=== PATIENT | male | born 1930 | race Hispanic/Latino ===

== ENCOUNTER 2017-03-16 11:58 | Inpatient (IN) | payer MEDICARE ==
[2017-03-16 12:10] VITALS: BMI 27.6
--- NOTE | 2017-03-16 12:13 | ED PDOC ---
Arrival/HPI - General Time Seen by Provider: 03/16/17 12:03 Historian: Patient - History of Present Illness Narrative History of Present Illness (Text): 03/16/17 12:10 A 86 year old male, whose past medical history includes pacemaker, stents, hypertension, and hypercholesterolemia, was sent into the emergency department by PMD complaining of shortness of breath for the past 3 days. Patient reports worsening dyspnea on exertion. He states his symptoms are relieved at rest. Patient denies any fever, nausea, vomiting, diarrhea, abdominal pain, chest pain , cough, dizziness or any other complaints. PMD: Dr. Acevedo Finish Sander: Dr. Goss Time/Duration: Other (few days) Symptom Course: Unchanged Quality: Other Context: Home Associated Symptoms (Text): 03/16/17 13:32 patient has dyspnea on exertion. No dyspnea at rest. no chest pain. Past Medical History - Provider Review Nursing Documentation Reviewed: Yes - Cardiac Hx Cardiac Disorders: Yes Hx Hypertension: Yes Hx Pacemaker: Yes - Pulmonary Hx Respiratory Disorders: No Other/Comment: SMOKES CIGARETTES PPD /QUIT - Neurological Hx Neurological Disorder: No Hx Dizziness: Yes (SYNCOPE) - HEENT Hx HEENT Disorder: No - Renal Hx Renal Disorder: No - Endocrine/Metabolic Hx Endocrine Disorders: No - Hematological/Oncological Hx Blood Disorders: No - Integumentary Hx Dermatological Disorder: No - Musculoskeletal/Rheumatological Hx Musculoskeletal Disorders: No Hx Falls: Yes - Gastrointestinal Hx Gastrointestinal Disorders: No - Genitourinary/Gynecological Hx Genitourinary Disorders: No - Psychiatric Hx Psychophysiologic Disorder: No Hx Substance Use: No - Surgical History Hx Cardiac Catheterization: Yes Hx Coronary Stent: Yes Hx Eye Surgery: Yes Other/Comment: EYE SX Family/Social History - Physician Review Nursing Documentation Reviewed: Yes Family/Social History: No Known Family HX Smoking Status: Former Smoker Hx Alcohol Use: No Hx Substance Use: No Allergies/Home Meds Allergies/Adverse Reactions: Allergies No Known Allergies Allergy (Verified 03/16/17 12:13) Home Medications: Home Meds Medication Instructions Recorded Confirmed Aspirin 81 mg PO DAILY 04/21/16 03/16/17 Atorvastatin [Lipitor] 40 mg PO DIN 04/23/16 03/16/17 Metoprolol Tartrate [Lopressor] 1.5 tab PO BID 03/16/17 03/16/17 Tamsulosin [Flomax] 0.4 mg PO DAILY 03/16/17 03/16/17 Review of Systems - Physician Review All systems were reviewed & negative as marked: Yes - Review of Systems Constitutional: absent: Fevers Respiratory: SOB. absent: Cough Cardiovascular: absent: Chest Pain Gastrointestinal: absent: Abdominal Pain, Nausea, Vomiting Neurological: absent: Dizziness Physical Exam Vital Signs Temp Pulse Resp BP Pulse Ox 03/16/17 14:22 66 18 127/73 97 03/16/17 13:48 65 18 120/88 98 03/16/17 12:15 16 98 03/16/17 12:14 98.0 F 67 18 149/71 98 Temperature: Afebrile Blood Pressure: Normal Pulse: Regular Respiratory Rate: Normal Appearance: Positive for: Well-Appearing, Non-Toxic, Comfortable Pain Distress: None Mental Status: Positive for: Alert and Oriented X 3 - Systems Exam Head: Present: Atraumatic, Normocephalic Pupils: Present: PERRL Extroacular Muscles: Present: EOMI Conjunctiva: Present: Normal Mouth: Present: Moist Mucous Membranes Pharnyx: No: ERYTHEMA, EXUDATE, TONSILS ENLARGED Neck: Present: Normal Range of Motion. No: MIDLINE TENDERNESS, Paraspinal Tenderness, JVD Respiratory/Chest: Present: Clear to Auscultation, Good Air Exchange, Decreased Breath Sounds. No: Respiratory Distress, Accessory Muscle Use, Wheezes, Rales, Retracting, Rhonchi, Tachypneic Cardiovascular: Present: Normal S1, S2, Irregular Rhythm, Other (Regular Rate). No: Murmurs Abdomen: Present: Normal Bowel Sounds. No: Tenderness, Distention, Peritoneal Signs Upper Extremity: Present: Normal Inspection. No: Cyanosis, Edema Lower Extremity: Present: Normal Inspection. No: Edema Neurological: Present: GCS=15, CN II-XII Intact, Speech Normal, Motor Func Grossly Intact Skin: Present: Warm, Dry, Normal Color. No: Rashes Psychiatric: Present: Alert, Oriented x 3, Normal Insight, Normal Concentration Medical Decision Making ED Course and Treatment: 03/16/17 12:10 Impression: A 86 year old male with shortness of breath and dyspnea on exertion. Patient denies any chest pain. Plan: -- Chest xray -- EKG -- Labs -- Reassess and disposition Prior Visits: Notes and results from previous visits were reviewed. Patient last seen in ED on 04/21/16 and hospitalized for syncope. Progress Notes: Report Date : 03/16/2017 12:30:58 Procedure: Chest xray Dictator : Víctor Valdes MD IMPRESSION: No active disease. 03/16/17 13:30 seen and examined by ' resident Ed, who will follow up on the VQ scan. 03/16/17 13:33 EKG is pacing rate approximately 70 03/16/17 16:17 VQ scan as read by the radiologist shows low probability for pulmonary embolus - Lab Interpretations Lab Results: 03/16/17 12:30 03/16/17 12:30 Lab Results 03/16/17 12:30: WBC 7.4, RBC 4.59, Hgb 13.2 L, Hct 40.1 L, MCV 87.4, MCH 28.8, MCHC 32.9, RDW 13.7, Plt Count 198, MPV 10.1, Gran % 72.2 H, Lymph % (Auto) 14.1 L, [place] % (Auto) 10.5 H, Eos % (Auto) 2.7, Baso % (Auto) 0.5, Gran # 5.31, Lymph # 1.0 L, [place] # 0.8 H, Eos # 0.2, Baso # 0.04, PT 10.8, INR 1.00, APTT 24.9, D-Dimer, Quantitative 1.14 H, Sodium 143, Potassium 4.4, Chloride 105, Carbon Dioxide 26, Anion Gap 16, BUN 26 H, Creatinine 1.9 H, Est GFR ( Amer) 41, Est GFR (Non-Af Amer) 34, Random Glucose 109, Calcium 9.3, Total Bilirubin 0.8, AST 24, ALT 35, Alkaline Phosphatase 129, Lactate Dehydrogenase 305 L, Total Creatine Kinase 94, Troponin I 0.03 D, NT-Pro-B Natriuret Pep 8210 H, Total Protein 6.9, Albumin 4.0, Globulin 2.9, Albumin/Globulin Ratio 1.4 I have reviewed the lab results: Yes - RAD Interpretation Radiology Orders: 03/16/17 12:10 CHEST PORTABLE [RAD] Stat 03/16/17 13:15 LUNG PERF & VENT SCAN [NM] Stat - Medication Orders Current Medication Orders: Amlodipine Besylate (Norvasc) 5 mg PO DAILY [facility] Aspirin (Ecotrin) 81 mg PO DAILY [facility] Atorvastatin Calcium (Lipitor) 40 mg PO DIN [facility] Famotidine (Pepcid) 40 mg PO HS [facility] Heparin Sodium (Porcine) (Heparin) 5,000 units SC Q12 [facility] PRN Reason: Protocol Metoprolol Tartrate (Lopressor) 75 mg PO BID [facility] Tamsulosin HCl (Flomax) 0.4 mg PO DAILY [facility] - Scribe Statement The provider has reviewed the documentation as recorded by the Rajni Rangel Provider Scribe Attestation: All medical record entries made by the Scribe were at my direction and personally dictated by me. I have reviewed the chart and agree that the record accurately reflects my personal performance of the history, physical exam, medical decision making, and the department course for this patient. I have also personally directed, reviewed, and agree with the discharge instructions and disposition. Disposition/Present on Arrival - Present on Arrival Any Indicators Present on Arrival: No History of DVT/PE: No History of Uncontrolled Diabetes: No Urinary Catheter: No History of Decub. Ulcer: No History Surgical Site Infection Following: None - Disposition Have Diagnosis and Disposition been Completed?: Yes Diagnosis: Congestive heart failure Disposition: HOSPITALIZED Disposition Time: 13:31 Patient Plan: Admission, Telemetry Condition: FAIR
--- NOTE | 2017-03-16 12:32 | RAD ---
HISTORY: sob COMPARISON: 04/21/2016 FINDINGS: LUNGS: No active pulmonary disease. PLEURA: No significant pleural effusion identified, no pneumothorax apparent. CARDIOVASCULAR: Normal. OSSEOUS STRUCTURES: No significant abnormalities. VISUALIZED UPPER ABDOMEN: Normal. OTHER FINDINGS: Dual lead pacemaker IMPRESSION: No active disease.
[2017-03-16 12:40] LABS: ADD MANUAL DIFF? NO
[2017-03-16 12:49] LABS: BASO # 0.04 K/mm3 (0.0-2.0); BASO % 0.5 % (0.0-3.0); EOS # 0.2 (0.0-0.7); EOS % 2.7 % (1.5-5.0); GRAN # 5.31 (1.4-6.5); GRAN % 72.2 % (50.0-68.0); HEMATOCRIT 40.1 % (42.0-52.0); LYMPH % 14.1 % (22.0-35.0); MEAN CELL VOLUME 87.4 fL (80.0-105.0); MEAN CORPUSCULAR HEMOGLOBIN 28.8 pg (25.0-35.0); MEAN CORPUSCULAR HGB CONC 32.9 g/dl (31.0-37.0); MEAN PLATELET VOLUME 10.1 fl (7.0-11.0); MONO # 0.8 (0.1-0.6); MONO % 10.5 % (1.0-6.0); PLATELET COUNT 198 10^3/uL (120.0-450.0); RED CELL DISTRIBUTION WIDTH 13.7 % (11.5-14.5); WHITE BLOOD COUNT 7.4 10^3/ul (4.5-11.0)
[2017-03-16 13:01] LABS: ALB/GLOB RATIO 1.4 (1.1-1.8); BILIRUBIN,TOTAL 0.8 mg/dL (0.2-1.3); CALCIUM 9.3 mg/dL (8.4-10.5); POTASSIUM 4.4 mmol/L (3.6-5.0); TOTAL PROTEIN 6.9 g/dL (5.8-8.3)
[2017-03-16 13:08] LABS: PARTIAL THROMBOPLASTIN TIME 24.9 Seconds (23.7-30.8)
[2017-03-16 13:09] LABS: D DIMER 1.14 mg/L FEU (0-0.50)
[2017-03-16 13:19] LABS: TROPONIN I 0.03 ng/mL
--- NOTE | 2017-03-16 13:26 | CP.PCM.HP ---
<NoamJaspal - Last Filed: 03/16/17 21:18> History of Present Illness - History of Present Illness History of Present Illness: cc: Shortness of breath HPI: Patient is an 86yo male with past medical history of CAD s/p stent placement, pacemaker placement, hypertension, hyperlipidemia, macular degeneration and basal cell skin cancer that presents c/o shortness of breath. Patient states that he is normally able to walk without issue however recently he has been having to stop every half a block to catch his breath. Patient reports that his symptoms started several days prior and have not been associated with chest pain or palpitations. In the ED, patients vitals were as follows: temeprature 98F, heart rate 67bpm, blood pressure 149/71, respiratory rate 18, oxygen saturation 98% on nasal canula. Labs were notable for a d-dimer of 1.14, BUN of 26, creatinine of 1.9, NT-proBNP of 8210 and troponin of 0.03. He denied chest pain, palpitations, fever, chills, cough, focal weakness, numbness, tingling, abdominal pain, nausea, vomiting. 12 point ROS as per HPI above, otherwise negative PMHx: CAD, HTN, HLD, macular degeneration PSHx: Pacemaker placement, stent placements Allergies: NKDA Meds: Reviewed and as per chart Social Hx: Former tobacco user (quit over 50yrs ago), denies alcohol and illicit drugs; lives with his Family Hx: Father: at 28yo from [place]; Mother: DM2 PMD: Dr. Acevedo Present on Admission - Present on Admission Any Indicators Present on Admission: No Past Patient History - Past Social History Smoking Status: Former Smoker - CARDIAC Hx Cardiac Disorders: Yes Hx Hypertension: Yes Hx Pacemaker: Yes - PULMONARY Hx Respiratory Disorders: No Other/Comment: SMOKES CIGARETTES PPD /QUIT - NEUROLOGICAL Hx Neurological Disorder: No Hx Dizziness: Yes (SYNCOPE) - HEENT Hx HEENT Problems: No - RENAL Hx Chronic Kidney Disease: No - ENDOCRINE/METABOLIC Hx Endocrine Disorders: No - HEMATOLOGICAL/ONCOLOGICAL Hx Blood Disorders: No - INTEGUMENTARY Hx Dermatological Problems: No - MUSCULOSKELETAL/RHEUMATOLOGICAL Hx Musculoskeletal Disorders: No Hx Falls: Yes - GASTROINTESTINAL Hx Gastrointestinal Disorders: No - GENITOURINARY/GYNECOLOGICAL Hx Genitourinary Disorders: No - PSYCHIATRIC Hx Psychophysiologic Disorder: No Hx Substance Use: No - SURGICAL HISTORY Hx Cardiac Catheterization: Yes Hx Coronary Stent: Yes Hx Eye Surgery: Yes Other/Comment: EYE SX Meds Allergies/Adverse Reactions: Allergies Allergy/AdvReac Type Severity Reaction Status Date / Time No Known Allergies Allergy Verified 03/16/17 12:13 Physical Exam - Constitutional Appears: Non-toxic, No Acute Distress - Head Exam Head Exam: ATRAUMATIC, NORMAL INSPECTION, NORMOCEPHALIC - Eye Exam Eye Exam: EOMI, PERRL - ENT Exam ENT Exam: Mucous Membranes Moist - Neck Exam Neck exam: Positive for: Normal Inspection. Negative for: Lymphadenopathy, Tenderness, Thyromegaly - Respiratory Exam Respiratory Exam: Clear to Auscultation Bilateral. absent: Rales, Rhonchi, Wheezes - Cardiovascular Exam Cardiovascular Exam: RRR, +S1, +S2. absent: Clicks, Gallop, JVD, Rubs - GI/Abdominal Exam GI & Abdominal Exam: Normal Bowel Sounds, Soft. absent: Distended, Firm, Guarding, Rebound, Tenderness - Extremities Exam Extremities exam: Positive for: normal inspection. Negative for: pedal edema - Neurological Exam Neurological exam: Alert, Oriented x3 - Psychiatric Exam Psychiatric exam: Normal Affect, Normal Mood - Skin Skin Exam: Dry, Intact, Normal Color, Warm Results - Vital Signs Recent Vital Signs: Last Vital Signs Temp 98.0 F 03/16/17 12:14 Pulse 67 03/16/17 12:14 Resp 18 03/16/17 12:14 BP 149/71 03/16/17 12:14 Pulse Ox 98 03/16/17 12:14 - Labs Result Diagrams: 03/16/17 12:30 03/16/17 12:30 Labs: Laboratory Results - last 24 hr 03/16/17 12:30 WBC 7.4 RBC 4.59 Hgb 13.2 L Hct 40.1 L MCV 87.4 MCH 28.8 MCHC 32.9 RDW 13.7 Plt Count 198 MPV 10.1 Gran % 72.2 H Lymph % (Auto) 14.1 L [place] % (Auto) 10.5 H Eos % (Auto) 2.7 Baso % (Auto) 0.5 Gran # 5.31 Lymph # 1.0 L [place] # 0.8 H Eos # 0.2 Baso # 0.04 PT 10.8 INR 1.00 APTT 24.9 D-Dimer, Quantitative 1.14 H Sodium 143 Potassium 4.4 Chloride 105 Carbon Dioxide 26 Anion Gap 16 BUN 26 H Creatinine 1.9 H Est GFR ( Amer) 41 Est GFR (Non-Af Amer) 34 Random Glucose 109 Calcium 9.3 Total Bilirubin 0.8 AST 24 ALT 35 Alkaline Phosphatase 129 Lactate Dehydrogenase 305 L Total Creatine Kinase 94 Total Protein 6.9 Albumin 4.0 Globulin 2.9 Albumin/Globulin Ratio 1.4 Assessment & Plan - Assessment and Plan (Free Text) Assessment: 86yo male with history of CAD, pacemaker placement, HTN, HLD presents c/o dyspnea on exertion for past several days Plan: 1. Dyspnea -D-dimer elevated 1.14 -VQ scan revealed low probability for pulmonary embolism -Troponin 0.03, will trend -CXR reviewed; no active disease -EKG reviewed -Continue metoprolol, ASA, lipitor -Cardiology consulted - Dr. Goss 2. Hypertension -Continue home medication norvasc and metoprolol 3. Hyperlipidemia -Continue lipitor 4. BPH -Continue flomax 5. GI/DVT prophylaxis -Pepcid/heparin Case discussed with attending, Dr. Acevedo - Date & Time Date: 03/16/17 Time: 13:43 <Caleb Acevedo - Last Filed: 04/24/17 08:17> Results - Vital Signs Recent Vital Signs: Last Vital Signs Temp 97.9 F 03/19/17 08:53 Pulse 65 03/19/17 10:24 Resp 18 03/19/17 08:53 BP 125/66 03/19/17 10:24 Pulse Ox 98 03/19/17 08:53 - Labs Result Diagrams: 03/19/17 07:30 03/19/17 07:30 Attending/Attestation - Attestation I have personally seen and examined this patient.: Yes I have fully participated in the care of the patient.: Yes I have reviewed all pertinent clinical information: Yes Notes (Text): 04/24/17 08:17 Medical record note made by the resident after discussion with my direction and input after the patient was personally seen and examined by me. I have reviewed the chart and agree that the record reflects my personal performance of history, physical, data review and course for the patient that I have planned.
--- NOTE | 2017-03-16 16:03 | NM ---
COMPARISON: Chest x-ray same day TECHNIQUE: 30.0 mCi technetium 99-m DTPA aerosol. 3.4 mCI technetium 99-m MAA administered intravenously. FINDINGS: VENTILATION COMPONENT: Normal. PERFUSION COMPONENT: Normal. IMPRESSION: Lowprobability ventilation perfusion scan for pulmonary embolism.
[2017-03-16 16:42] LABS: MAGNESIUM 2.4 mg/dL (1.7-2.2); PHOSPHOROUS 3.7 mg/dL (2.5-4.5)
[2017-03-16 17:58] LABS: TROPONIN I 0.03 ng/mL
[2017-03-16] MEDS ORDERED: Pneumococcal 23-Valent Vaccine IM ONE (23:35)
[2017-03-17 00:23] LABS: TROPONIN I 0.05 ng/mL
[2017-03-17 07:42] LABS: ADD MANUAL DIFF? NO
[2017-03-17 08:17] LABS: ALB/GLOB RATIO 1.3 (1.1-1.8); POTASSIUM 4.2 mmol/L (3.6-5.0); TOTAL PROTEIN 6.7 g/dL (5.8-8.3)
[2017-03-17] MEDS ORDERED: Sodium Chloride 0.9% 100 ML IV SCH (08:17)
[2017-03-17 08:20] LABS: BASO # 0.07 K/mm3 (0.0-2.0); EOS # 0.3 (0.0-0.7); EOS % 3.6 % (1.5-5.0); GRAN # 4.59 (1.4-6.5); GRAN % 66.8 % (50.0-68.0); HEMATOCRIT 40.1 % (42.0-52.0); LYMPH # 1.3 (1.2-3.4); LYMPH % 19.2 % (22.0-35.0); MEAN CELL VOLUME 86.6 fL (80.0-105.0); MEAN CORPUSCULAR HEMOGLOBIN 28.3 pg (25.0-35.0); MEAN CORPUSCULAR HGB CONC 32.7 g/dl (31.0-37.0); MONO # 0.7 (0.1-0.6); MONO % 9.4 % (1.0-6.0); PLATELET COUNT 183 10^3/uL (120.0-450.0); RED CELL DISTRIBUTION WIDTH 13.7 % (11.5-14.5); WHITE BLOOD COUNT 6.9 10^3/ul (4.5-11.0)
[2017-03-17] MEDS ORDERED: Lidocaine 2% Inj (20ml) ONE (08:56)
[2017-03-17] MEDS ORDERED: Midazolam 2 MG/2 ML VIAL ONE ×2 (08:56→09:46)
[2017-03-17] MEDS ORDERED: Iohexol 350mgl/ml 50 ML ONE (08:57)
[2017-03-17] MEDS ORDERED: Iodixanol 320 MG/ML 200 ML BOTTLE IV ONE (08:57)
[2017-03-17] MEDS ORDERED: Sodium Bicarbonate (8.4%) 50 Meq Syringe ONE (09:07)
[2017-03-17] MEDS ORDERED: Sodium Chloride 0.9% 1,000 ML IV SCH ×2 (09:15→10:25)
--- NOTE | 2017-03-17 11:02 | CP.PCM.PN ---
<Jaspal Santacruz - Last Filed: 03/17/17 17:52> Subjective - Date & Time of Evaluation Date of Evaluation: 03/17/17 Time of Evaluation: 11:01 - Subjective Subjective: Patient was seen and examined at bedside this morning prior to his scheduled cardiac catherization. No acute overnight events or new complaints reported. Discussed the scheduled plan for today. Denies chest pain, palpitations, SOB. Objective - Vital Signs/Intake and Output Vital Signs (last 24 hours): Temp Pulse Resp BP Pulse Ox 97.6 F 65 18 129/76 96 03/17/17 07:42 03/17/17 07:42 03/17/17 07:42 03/17/17 07:42 03/17/17 07:42 Intake and Output: 03/17/17 03/17/17 06:59 18:59 Intake Total 440 Output Total 500 Balance -60 - Medications Medications: Current Medications Amlodipine Besylate (Norvasc) 5 mg PO DAILY [facility] Aspirin (Ecotrin) 81 mg PO DAILY [facility] Last Admin: 03/17/17 09:07 Dose: Not Given Atorvastatin Calcium (Lipitor) 40 mg PO DIN [facility] Last Admin: 03/16/17 18:08 Dose: 40 mg Famotidine (Pepcid) 40 mg PO HS [facility] Last Admin: 03/16/17 22:06 Dose: 40 mg Sodium Chloride (Sodium Chloride 0.9%) 1,000 mls @ 100 mls/hr IV .Q10H [facility] Stop: 03/17/17 18:00 Metoprolol Tartrate (Lopressor) 50 mg PO BID [facility] Tamsulosin HCl (Flomax) 0.4 mg PO DAILY [facility] - Labs Labs: 03/17/17 07:25 03/17/17 07:25 PT 10.8 Seconds (9.9-11.8) 03/16/17 12:30 INR 1.00 (0.93-1.08) 03/16/17 12:30 APTT 24.9 Seconds (23.7-30.8) 03/16/17 12:30 - Constitutional Appears: Well, Non-toxic, No Acute Distress - Head Exam Head Exam: ATRAUMATIC, NORMAL INSPECTION, NORMOCEPHALIC - Eye Exam Eye Exam: EOMI, PERRL - ENT Exam ENT Exam: Mucous Membranes Moist - Neck Exam Neck Exam: Normal Inspection. absent: Lymphadenopathy, Tenderness, Thyromegaly - Respiratory Exam Respiratory Exam: Clear to Ausculation Bilateral. absent: Rales, Rhonchi, Wheezes - Cardiovascular Exam Cardiovascular Exam: RRR, +S1, +S2. absent: Diastolic murmur, Gallop, JVD, Rubs , Murmur - GI/Abdominal Exam GI & Abdominal Exam: Soft. absent: Distended, Firm, Guarding, Tenderness, Rebound - Extremities Exam Extremities Exam: Normal Inspection - Neurological Exam Neurological Exam: Alert, Awake, Oriented x3 - Psychiatric Exam Psychiatric exam: Normal Affect, Normal Mood - Skin Skin Exam: Dry, Intact, Normal Color, Warm Assessment and Plan - Assessment and Plan (Free Text) Assessment: 86yo male with history of CAD, pacemaker placement, HTN, HLD presents c/o dyspnea on exertion for past several days Plan: 1. Dyspnea -D-dimer elevated 1.14 -VQ scan revealed low probability for pulmonary embolism -Troponin trend reviewed -CXR reviewed; no active disease -EKG reviewed -Lower extremity venous dopplers pending -Patient scheduled for cardiac catherization today -Continue metoprolol, ASA, lipitor -Cardiology consulted - Dr. Goss 2. Hypertension -Continue home medication norvasc and metoprolol 3. Hyperlipidemia -Continue lipitor 4. BPH -Continue flomax 5. GI/DVT prophylaxis -Pepcid/heparin Case discussed with attending, Dr. Acevedo <Caleb Acevedo - Last Filed: 04/24/17 08:17> Objective - Vital Signs/Intake and Output Vital Signs (last 24 hours): Temp Pulse Resp BP Pulse Ox 97.9 F 65 18 125/66 98 03/19/17 08:53 03/19/17 10:24 03/19/17 08:53 03/19/17 10:24 03/19/17 08:53 - Labs Labs: 03/19/17 07:30 03/19/17 07:30 PT 10.8 Seconds (9.9-11.8) 03/16/17 12:30 INR 1.00 (0.93-1.08) 03/16/17 12:30 APTT 24.9 Seconds (23.7-30.8) 03/16/17 12:30 Attending/Attestation - Attestation I have personally seen and examined this patient.: Yes I have fully participated in the care of the patient.: Yes I have reviewed all pertinent clinical information, including history, physical exam and plan: Yes Notes (Text): 04/24/17 08:17 Medical record note made by the resident after discussion with my direction and input after the patient was personally seen and examined by me. I have reviewed the chart and agree that the record reflects my personal performance of history, physical, data review and course for the patient that I have planned.
--- NOTE | 2017-03-17 11:31 | CARD ---
APPROVED REPORT EKG Measurement Heart [id number] <Conclusion> V paced Rythm, underlying A Fib
--- NOTE | 2017-03-17 11:31 | CARDCATH ---
PROCEDURE DATE: 03/17/2017 HISTORY OF PRESENT ILLNESS: The patient is an 86-year-old male who presents with sudden onset of exe rtional dyspnea for the past 2 days. He was admitted to the hospital yesterday with troponins that were found to peak at 0.05. His VQ scan showed low probability for pulmonary embolism. The creatinine is 1.7. Because of his ongoing symptoms, the patient was pretreated with Plavix as well as pretreated with IV bicarb and IV fluids and brought down to the cleaning laborer. PROCEDURE: Left heart catheterization with coronary angiography and left ventriculogram. The right femoral artery was cannulated with a 6-Tajik sheath. There were no complications. Findings on catheterization revealed a right dominant circulation. The RCA was visualized and found to have intimal irregularities without significant stenoses. The left main artery was unremarkable. The LAD revealed diffuse atherosclerosis with a long 30% stenosis in the proximal/mid portion. There was an 80% stenosis at the ostium of a first diagonal vessel. The circumflex artery and obtuse marginal branches revealed diffuse atherosclerosis without critical lesions. Supra-aortic valvular injection revealed 1+ aortic insufficiency. LV function was normal with an EF of between 50-60%. LVEDP was 15-17 mmHg. Angio-Seal was used to close the femoral artery site. The patient tolerated the procedure well. FINDINGS: The findings on catheterization revealed diffuse atherosclerosis without critical lesions except for a 70-80% stenosis at the ostium of a first diagonal vessel. Normal left ventricular function. 1+ aortic insufficiency. Given these findings, cardiac catheterization findings cannot explain his exertional dyspnea. The di sease in the small diagonal vessel cannot explain his exertional dyspnea. We will need to look at other causes of dyspnea. We will need to follow serial creatinines given the contrast load, which was 30 mL total with the pat ient with a baseline renal insufficiency. Samuel Goss MD cc: [phone] TT: 03/17/2017 11:30:40 an
--- NOTE | 2017-03-17 18:28 | US ---
HISTORY: Leg pain and swelling. Evaluate for DVT PHYSICIAN(S): Samuel Lai MD. TECHNIQUE: Duplex sonography and color-flow Doppler with graded compression were used to evaluate the deep venous systems of both lower extremities. FINDINGS: The visualized deep venous systems of both lower extremities are sonographically normal and compressible. Normal wave forms and augmentation are seen. There is no sonographic evidence for deep venous thrombosis in the visualized segments of both lower extremities. IMPRESSION: No sonographic evidence for deep venous thrombosis in the visualized segments of both lower extremities.
[2017-03-18 05:36] VITALS: O2SAT 98
[2017-03-18 08:14] LABS: ADD MANUAL DIFF? NO
[2017-03-18 08:21] LABS: BASO # 0.05 K/mm3 (0.0-2.0); BASO % 0.9 % (0.0-3.0); EOS # 0.2 (0.0-0.7); EOS % 4.3 % (1.5-5.0); GRAN # 3.49 (1.4-6.5); GRAN % 63.2 % (50.0-68.0); HEMATOCRIT 37.6 % (42.0-52.0); LYMPH % 18.6 % (22.0-35.0); MEAN CELL VOLUME 86.6 fL (80.0-105.0); MEAN CORPUSCULAR HEMOGLOBIN 28.3 pg (25.0-35.0); MEAN CORPUSCULAR HGB CONC 32.7 g/dl (31.0-37.0); MEAN PLATELET VOLUME 10.2 fl (7.0-11.0); MONO # 0.7 (0.1-0.6); PLATELET COUNT 148 10^3/uL (120.0-450.0); RED CELL DISTRIBUTION WIDTH 13.7 % (11.5-14.5); WHITE BLOOD COUNT 5.5 10^3/ul (4.5-11.0)
[2017-03-18 08:35] LABS: ALB/GLOB RATIO 1.3 (1.1-1.8); BILIRUBIN,TOTAL 0.8 mg/dL (0.2-1.3); CALCIUM 8.7 mg/dL (8.4-10.5); POTASSIUM 4.1 mmol/L (3.6-5.0); TOTAL PROTEIN 5.9 g/dL (5.8-8.3)
--- NOTE | 2017-03-18 11:07 | CARD ---
APPROVED REPORT EXAM: Two-dimensional and M-mode echocardiogram with Doppler and color Doppler. INDICATION Chest Pain 2D DIMENSIONS Left Atrium (2D)4.7 (1.6-4.0cm)IVSd1.3 (0.7-1.1cm) LVDd4.1 (3.9-5.9cm)PWd1.4 (0.7-1.1cm) LVDs3.0 (2.5-4.0cm)FS (%) 26.1 % LVEF (%)51.6 (>50%) M-Mode DIMENSIONS Aortic Root2.10 (2.2-3.7cm)Aortic Cusp Exc.1.40 (1.5-2.0cm) Aortic Valve AI P 1/2 [id number] Mitral Valve E/A ratio0.0 TDI E/Lateral E'0.0E/Medial E'0.0 Tricuspid Valve TR Peak [id number] [id number] Peak Gr.37mmHg [id number] LEFT VENTRICLE The left ventricle is normal size. There is borderline concentric left ventricular hypertrophy. Left ventricle systolic function is borderline. Apical motion consistent with pacemaker activation. RIGHT VENTRICLE The right ventricle is normal size. There is normal right ventricular wall thickness. The right ventricular systolic function is normal. ATRIA The left atrium is moderately dilated. The right atrium is mildly dilated. AORTIC VALVE The aortic valve is mildly sclerotic. There is mild aortic regurgitation. MITRAL VALVE The mitral valve is moderately thickened. Mitral regurgitation is moderate. TRICUSPID VALVE There is moderate tricuspid regurgitation. There is mild to moderate pulmonary hypertension. GREAT VESSELS The aortic root is normal in size. PERICARDIAL EFFUSION There is no pericardial effusion. <Conclusion> The left ventricle is normal size. There is borderline concentric left ventricular hypertrophy. Left ventricle systolic function is borderline. Apical motion consistent with pacemaker activation. There is mild aortic regurgitation. Mitral regurgitation is moderate. There is moderate tricuspid regurgitation. There is mild to moderate pulmonary hypertension.
[2017-03-18 11:16] LABS: IRON 35 ug/dL (45-180)
--- NOTE | 2017-03-18 11:18 | CP.PCM.PN ---
<Jaspal Santacruz - Last Filed: 03/18/17 13:07> Subjective - Date & Time of Evaluation Date of Evaluation: 03/18/17 Time of Evaluation: 11:13 - Subjective Subjective: Medicine progress note - Jaspal Santacruz PGY1 Patient seen and examined at bedside this morning. No acute overnight events or new complaints. Patient eating and sleeping well. Cardiac cath report reviewed, no critical lesions or stents placed. Discussed current workup/plan with patient. Pulmonology consulted for further investigation of dyspnea on exertion. Patient is pending echocardiogram, CT chest and PFT's. Objective - Vital Signs/Intake and Output Vital Signs (last 24 hours): Temp Pulse Resp BP Pulse Ox 98.6 F 63 20 122/59 L 98 03/18/17 05:35 03/18/17 05:35 03/18/17 05:35 03/18/17 05:35 03/18/17 05:35 Intake and Output: 03/18/17 03/18/17 06:59 18:59 Intake Total 660 Output Total 950 Balance -290 - Medications Medications: Current Medications Aspirin (Ecotrin) 81 mg PO DAILY [facility] Last Admin: 03/17/17 09:07 Dose: Not Given Atorvastatin Calcium (Lipitor) 40 mg PO DIN [facility] Last Admin: 03/17/17 18:39 Dose: 40 mg Famotidine (Pepcid) 40 mg PO HS [facility] Last Admin: 03/17/17 22:08 Dose: 40 mg Fluticasone Propionate (Flonase) 1 actuation NS DAILY [facility] Furosemide (Lasix) 20 mg PO BID [facility] Metoprolol Tartrate (Lopressor) 50 mg PO BID [facility] Last Admin: 03/17/17 18:40 Dose: 50 mg Tamsulosin HCl (Flomax) 0.4 mg PO DAILY [facility] Last Admin: 03/17/17 18:39 Dose: 0.4 mg - Labs Labs: 03/18/17 05:30 03/18/17 05:30 PT 10.8 Seconds (9.9-11.8) 03/16/17 12:30 INR 1.00 (0.93-1.08) 03/16/17 12:30 APTT 24.9 Seconds (23.7-30.8) 03/16/17 12:30 - Constitutional Appears: Well, Non-toxic, No Acute Distress - Head Exam Head Exam: ATRAUMATIC, NORMAL INSPECTION, NORMOCEPHALIC - Eye Exam Eye Exam: EOMI, PERRL - ENT Exam ENT Exam: Mucous Membranes Moist - Neck Exam Neck Exam: Normal Inspection - Respiratory Exam Respiratory Exam: Clear to Ausculation Bilateral. absent: Rales, Rhonchi, Wheezes - Cardiovascular Exam Cardiovascular Exam: RRR, +S1, +S2. absent: Gallop, Rubs, Murmur - GI/Abdominal Exam GI & Abdominal Exam: Soft, Normal Bowel Sounds. absent: Distended, Firm, Guarding, Rigid, Tenderness, Rebound - Extremities Exam Extremities Exam: Normal Inspection - Neurological Exam Neurological Exam: Alert, Awake, Oriented x3 - Psychiatric Exam Psychiatric exam: Normal Affect, Normal Mood - Skin Skin Exam: Dry, Intact, Normal Color, Warm Assessment and Plan - Assessment and Plan (Free Text) Plan: 86yo male with history of CAD, pacemaker placement, HTN, HLD presents c/o dyspnea on exertion for past several days 1. Dyspnea -D-dimer elevated 1.14 -VQ scan revealed low probability for pulmonary embolism -Troponin trend reviewed -CXR reviewed; no active disease -EKG reviewed -Lower extremity venous dopplers negative for DVT -Lower extremity arterial dopplers pending -CT chest pending -Echocardiogram reviewed; see full report -Cardiac catherization report reviewed; no stents placed; no critical lesions; see full report -Continue metoprolol, ASA, lipitor -Cardiology consulted - Dr. Goss -Pulmonology consulted - Dr. Medellin 2. Hypertension -Continue home medication metoprolol -Norvasc discontinued; Patient started on Lasix PO 20mg BID 3. Hyperlipidemia -Continue lipitor 4. BPH -Continue flomax 5. Anemia -Anemia working pending: Iron, ferritin, TIBC, B12, folate 6. GI/DVT prophylaxis -Pepcid/heparin Case discussed with attending, Dr. Acevedo <Caleb Acevedo - Last Filed: 04/24/17 08:18> Objective - Vital Signs/Intake and Output Vital Signs (last 24 hours): Temp Pulse Resp BP Pulse Ox 97.9 F 65 18 125/66 98 03/19/17 08:53 03/19/17 10:24 03/19/17 08:53 03/19/17 10:24 03/19/17 08:53 - Labs Labs: 03/19/17 07:30 03/19/17 07:30 PT 10.8 Seconds (9.9-11.8) 03/16/17 12:30 INR 1.00 (0.93-1.08) 03/16/17 12:30 APTT 24.9 Seconds (23.7-30.8) 03/16/17 12:30 Attending/Attestation - Attestation I have personally seen and examined this patient.: Yes I have fully participated in the care of the patient.: Yes I have reviewed all pertinent clinical information, including history, physical exam and plan: Yes Notes (Text): 04/24/17 08:18 Medical record note made by the resident after discussion with my direction and input after the patient was personally seen and examined by me. I have reviewed the chart and agree that the record reflects my personal performance of history, physical, data review and course for the patient that I have planned.
[2017-03-18] MEDS: Fluticasone Nasal 50 mcg/Spray NS SCH (11:44)
--- NOTE | 2017-03-18 11:52 | CON ---
DATE: 03/18/2017 REASON FOR CONSULTATION: Dyspnea on exertion. REFERRING PHYSICIAN: Dr. Caleb Acevedo. History is obtained via extensive discussion with Dr. Acevedo. I have also reviewed the chart at length, and discussed the case with the patient at length. The patient is an 86-year-old male with past medical history significant for coronary artery disease, status post cardiac stent placement, pacemaker placement, former smoker, hypertension, hyperlipidemia, who presents to [facility] with main complaint of dyspnea on exertion for 1 week. The patient denies shortness of breath at rest. He does have an occasional cough with no sputum production. There is no history of chest pain, coughing up of blood or chest pain - made worse with deep respirations. There is no history of temperatures, chills or infectious exposure. There is no history of night sweats, weight loss or appetite change prior to the above events. No history of leg or calf pains. No history of syncope or diaphoresis. No history of recent travel or trauma. REVIEW OF SYSTEMS: The patient does complain of constant nasal dripping and sinus problems. REVIEW OF SYSTEMS: No history of nausea, vomiting or diarrhea. No acute urinary symptoms. No new neurological or musculoskeletal complaints. Rest of the review of systems is negative. ALLERGIES: No known allergies. SOCIAL HISTORY: Positive for former tobacco usage. No alcohol. FAMILY HISTORY: No inheritable diseases. HOME MEDICATIONS: Include Norvasc, Flomax, Lopressor, Lipitor, aspirin. PHYSICAL EXAMINATION: GENERAL: The patient is comfortable at rest. He is not short of breath. VITAL SIGNS: Temperature is 98.6, pulse 63, respirations 18/20, blood pressure 122/59. Oxygen saturation on room air is 98%. HEENT: Normocephalic, atraumatic. NECK: No JVD. CARDIOVASCULAR: Systolic ejection murmur at the lower left sternal border. No S3 gallop. LUNGS: Decreased breath sounds at the bases. No rhonchi or wheezing. EXTREMITIES: Mild edema. No cyanosis, no clubbing. Calves are nontender to palpation. GASTROINTESTINAL: Abdomen is soft, nontender, nondistended. Bowel sounds are positive. SKIN: No acute rash. NEUROLOGIC: Limited at the present time. PERTINENT LABORATORY DATA: Chest x-ray was done on 03/16/2017. There is no active disease present. Ventilation perfusion scan was also done on 2016. It is low probability for pulmonary embolism. Extremity ultrasound was also done on 03/16/2017. There is no evidence for deep venous thrombosis. CBC : White count 5.5, hemoglobin 12.3, hematocrit 37.6, platelets of 148. Complete metabolic profile: Creatinine 1.8. Rest of the metabolic profile is within normal limits. Initial B-type natriuretic peptide 8210. IMPRESSION: 1. Dyspnea on exertion. 2. Coronary artery disease, status post cardiac stent. 3. Mild anemia. 4. Positive former smoker. 5. Status post permanent pacemaker. PLAN: Again, I did discuss the case with Dr. Acevedo and the patient at length. I have also reviewed the chart at length. The patient presents with main complaint of dyspnea on exertion for 1 week. He also states to a minimal cough with no sputum production. There are no other pulmonary symptoms reported. The patient does complain of constant sinus problems, and I will start nasal steroids this morning. I did review the chest x-ray--as above. It shows no active disease. I have also reviewed the workup for a pulmonary embolism. Both the ventilation perfusion scan and leg studies are negative. CAT scan of the chest has been ordered; I will check that when feasible. We are also awaiting the echocardiogram results. I am particularly interested in the right ventricular systolic pressure - to rule out pulmonary hypertension - as a source of his dyspnea on exertion. Interesting to note, the patient does have a mild anemia. I will check with Dr. Acevedo - in reference to the patient's baseline hemoglobin. Certainly, if his hemoglobin is lower than usual , this may also present with dyspnea on exertion. Additional pulmonary intervention will be based on the above results as well as the clinical status of the patient. Thank you very much for this pulmonary consultation. Nirmal Montemayor MD cc: [id number] TT: 03/18/2017 11:51:28 Confirmation # [id number] Dictation # [id number] YEBOAH
--- NOTE | 2017-03-18 12:53 | PN ---
DATE: 03/18/2017 SUBJECTIVE: The patient's symptoms are better. OBJECTIVE: VITAL SIGNS: Blood pressure is 122/60, heart rate in the 60s. NECK: Negative JVD. LUNGS: Without rales. HEART: Reveals S1, S2. EXTREMITIES: Without edema. LABORATORY DATA: Hemoglobin is 12.3. Chemistries: BUN and creatinine are essentially unchanged at 19 and 1.8. Echocardiogram reveals LVH with good LV function. There is mild pulmonary hypertension. IMPRESSION: 1. Exertional dyspnea. 2. Mild pulmonary hypertension. 3. Probable chronic obstructive pulmonary disease. 4. Coronary artery disease. 5. Stable angina. PLAN: Given these findings, the patient's cardiac status is stable. His cardiac left ventricular fu nction and his coronary disease cannot explain his exertional dyspnea. Workup from a pulmonary side is initiated. Will discontinue telemetry today. Samuel Goss MD cc: [id number] TT: 03/18/2017 12:52:17 Confirmation # [id number] Dictation # [id number] mn
--- NOTE | 2017-03-18 14:36 | CT ---
PROCEDURE: CT Chest without contrast HISTORY: dyspnea COMPARISON: None. TECHNIQUE: Contiguous axial images were obtained through the chest without intravenous contrast enhancement. Sagittal and coronal reconstructions were performed. Radiation dose (DLP): 617 mGy-cm. This CT exam was performed using one or more of the following dose reduction techniques: Automated exposure control, adjustment of the mA and/or kV according to patient size, and/or use of iterative reconstruction technique. FINDINGS: LUNGS: Minimal linear scarring in the lingular segment of the left upper lobe. MEDIASTINUM: Unremarkable thoracic aorta. No aneurysm. Normal sized heart. Main pulmonary artery unremarkable. No vascular congestion. No lymphadenopathy. Coronary artery calcifications PLEURA: Small pleural effusions BONES: No fracture. No destructive lesion. UPPER ABDOMEN: Stones are seen in the gallbladder OTHER FINDINGS: None. IMPRESSION: Unremarkable non-contrast enhanced CT of the chest.
--- NOTE | 2017-03-18 15:03 | US ---
PROCEDURE: Lower extremity RADHA exam HISTORY: Peripheral vascular disease with pain and claudication. Previous smoker PHYSICIAN(S): Samule Lai MD. FINDINGS: The resting RADHA's are normal: right, 1.28and left, 1.17. The brachial systolic pressures are symmetric. The low thigh pressures and waveforms are relatively normal. The calf PVR waveforms augment normally. No significant gradients are noted across the thighs. The ankle and metatarsal waveforms are relatively normal and symmetric. No significant pressure gradients are noted across the lower legs. IMPRESSION: 1. Relatively normal RADHA and PVR examination at rest.
[2017-03-18 17:35] LABS: FOLATE 13.2 ng/mL
[2017-03-19 07:37] LABS: ADD MANUAL DIFF? NO
[2017-03-19 07:45] LABS: BASO # 0.04 K/mm3 (0.0-2.0); BASO % 0.7 % (0.0-3.0); EOS # 0.3 (0.0-0.7); EOS % 4.7 % (1.5-5.0); GRAN # 3.73 (1.4-6.5); HEMATOCRIT 38.6 % (42.0-52.0); LYMPH # 1.2 (1.2-3.4); LYMPH % 19.5 % (22.0-35.0); MEAN CELL VOLUME 86.4 fL (80.0-105.0); MEAN CORPUSCULAR HGB CONC 32.4 g/dl (31.0-37.0); MEAN PLATELET VOLUME 9.8 fl (7.0-11.0); MONO # 0.8 (0.1-0.6); MONO % 13.1 % (1.0-6.0); PLATELET COUNT 160 10^3/uL (120.0-450.0); RED CELL DISTRIBUTION WIDTH 13.7 % (11.5-14.5)
--- NOTE | 2017-03-19 07:56 | PN ---
DATE: 03/19/2017 SUBJECTIVE: The patient appears very comfortable at rest. He is not short of breath. PHYSICAL EXAMINATION: VITAL SIGNS: Temperature is 97.0, pulse 60, respirations 18, blood pressure 102 /51. Oxygen saturation on room air is 98%. HEENT: Normocephalic, atraumatic. No JVD. CARDIOVASCULAR: Systolic ejection murmur at the lower left sternal border. No S3 gallop. LUNGS: Clear bilaterally this morning. EXTREMITIES: Mild edema. No cyanosis, no clubbing. Calves are nontender to palpation. GASTROINTESTINAL: Abdomen is soft, nontender, nondistended. Bowel sounds are positive. SKIN: No acute rash. NEUROLOGIC: Limited at the present time. PERTINENT LABORATORY DATA: CAT scan of the chest was done yesterday and reviewed. There is minimal linear scarring in the lingular segment of the left upper lobe. There is no lymphadenopathy. There is no evidence of pulmonary mass, nodule, or acute consolidation. I have also reviewed the echocardiogram report. Mild to moderate pulmonary hypertension is noted. The right ventricular systolic pressure is 47. IMPRESSION: 1. Dyspnea on exertion. 2. Coronary artery disease, status post cardiac stent. 3. Mild anemia. 4. Positive former smoker. Rule out chronic obstructive pulmonary disease. 5. Status post permanent pacemaker. 6. Mild to moderate pulmonary hypertension. PLAN: The patient appears very comfortable this morning. He is not short of breath at rest. He states he is feeling much better overall. He also has much less nasal complaints. I did review the CAT scan of the chest. There are no significant findings noted. I have also reviewed the echocardiogram findings. Mild to moderate pulmonary hypertension is noted. I did have a long discussion this morning with the patient in reference to the CAT scan and his echocardiogram. Pulmonary function testing has been ordered. The patient is for probable discharge in the near future. I did give him my card/information for a followup appointment. He agrees. I will also discuss the above with Dr. Goss - gerhard. Depending on the symptoms, and availability of medication, the patient may need a right heart cardiac catheterization. I will discuss the above with Dr. Acevedo this morning. Nirmal Montemayor MD cc: [id number] TT: 03/19/2017 07:56:24 Confirmation # [id number] Dictation # [id number] mn EDILIA
[2017-03-19 07:59] LABS: ALB/GLOB RATIO 1.3 (1.1-1.8); TOTAL PROTEIN 6.8 g/dL (5.8-8.3)
[2017-03-19 08:54] VITALS: RESP 18; TEMP 97.9
--- NOTE | 2017-03-19 09:49 | PN ---
DATE: 03/19/2017 The patient's breathing is better. PHYSICAL EXAMINATION: VITAL SIGNS: Blood pressure is 124/67. Heart rate is in the 60s. NECK: Negative JVD. LUNGS: Without rales. HEART: Revealed S1, S2. EXTREMITIES: Without edema. LABORATORIES: The creatinine is 1.9. Hemoglobin is unremarkable. Echocardiogram reveals good LV function with mild to moderate pulmonary hypertension. IMPRESSION: 1. Dyspnea which is improved. 2. Mild to moderate pulmonary hypertension. 3. Chronic obstructive pulmonary disease. 4. Coronary artery disease. 5. Stable angina. PLAN: Given these findings, given the relatively modest elevation of pulmonary pressures on echocard iogram, I do not feel a right heart catheterization would be useful in terms of qualifying patient fo r pulmonary hypertension medications. However, will discuss the patient in detail. If so, this can be done electively. Samuel Goss MD cc: [id number] TT: 03/19/2017 09:48:36 Confirmation # [id number] Dictation # [id number] mn
[2017-03-19] MEDS: Fluticasone Nasal 50 mcg/Spray NS SCH (10:25)
[2017-03-19 10:26] VITALS: BP 125/66; PULSE 65
--- NOTE | 2017-03-19 11:21 | CP.PCM.DIS ---
<Jaspal Santacruz - Last Filed: 03/22/17 11:33> Provider - Provider Date of Admission: 03/16/17 13:35 Attending physician: Caleb Acevedo MD Primary care physician: Caleb Acevedo MD Consults: Cardiology - Dr. Goss Pulmonary -Dr. Montemayor Time Spent in preparation of Discharge (in minutes): 30 Hospital Course - Lab Results Lab Results: Most Recent Lab Values WBC 6.0 10^3/ul (4.5-11.0) 03/19/17 07:30 RBC 4.47 10^6/uL (3.5-6.1) 03/19/17 07:30 Hgb 12.5 gm/dL (14.0-18.0) L 03/19/17 07:30 Hct 38.6 % (42.0-52.0) L 03/19/17 07:30 MCV 86.4 fL (80.0-105.0) 03/19/17 07:30 MCH 28.0 pg (25.0-35.0) 03/19/17 07:30 MCHC 32.4 g/dl (31.0-37.0) 03/19/17 07:30 RDW 13.7 % (11.5-14.5) 03/19/17 07:30 Plt Count 160 10^3/uL (120.0-450.0) 03/19/17 07:30 MPV 9.8 fl (7.0-11.0) 03/19/17 07:30 Gran % 62.0 % (50.0-68.0) 03/19/17 07:30 Lymph % (Auto) 19.5 % (22.0-35.0) L 03/19/17 07:30 Loíza % (Auto) 13.1 % (1.0-6.0) H 03/19/17 07:30 Eos % (Auto) 4.7 % (1.5-5.0) 03/19/17 07:30 Baso % (Auto) 0.7 % (0.0-3.0) 03/19/17 07:30 Gran # 3.73 (1.4-6.5) 03/19/17 07:30 Lymph # 1.2 (1.2-3.4) 03/19/17 07:30 Loíza # 0.8 (0.1-0.6) H 03/19/17 07:30 Eos # 0.3 (0.0-0.7) 03/19/17 07:30 Baso # 0.04 K/mm3 (0.0-2.0) 03/19/17 07:30 PT 10.8 Seconds (9.9-11.8) 03/16/17 12:30 INR 1.00 (0.93-1.08) 03/16/17 12:30 APTT 24.9 Seconds (23.7-30.8) 03/16/17 12:30 D-Dimer, Quantitative 1.14 mg/L FEU (0-0.50) H 03/16/17 12:30 Sodium 142 mmol/L (132-148) 03/19/17 07:30 Potassium 4.0 mmol/L (3.6-5.0) 03/19/17 07:30 Chloride 106 mmol/L (98-107) 03/19/17 07:30 Carbon Dioxide 25 mmol/L (21-33) 03/19/17 07:30 Anion Gap 15 (10-20) 03/19/17 07:30 BUN 22 mg/dL (7-21) H 03/19/17 07:30 Creatinine 1.9 mg/dL (0.5-1.4) H 03/19/17 07:30 Est GFR ( Amer) 41 03/19/17 07:30 Est GFR (Non-Af Amer) 34 03/19/17 07:30 POC Glucose (mg/dL) 123 mg/dL (65-110) H 03/18/17 15:55 Random Glucose 119 mg/dL (70-110) H 03/19/17 07:30 Hemoglobin A1c 6.4 % (4.2-6.5) 03/16/17 14:58 Calcium 9.0 mg/dL (8.4-10.5) 03/19/17 07:30 Phosphorus 3.7 mg/dL (2.5-4.5) 03/16/17 14:58 Magnesium 2.4 mg/dL (1.7-2.2) H 03/16/17 14:58 Iron 35 ug/dL (45-180) L 03/18/17 10:55 TIBC 303 ug/dL (261-462) 03/18/17 10:55 % Saturation 12 % (20-55) L 03/18/17 10:55 Ferritin 36.5 ng/mL 03/18/17 10:55 Total Bilirubin 1.0 mg/dL (0.2-1.3) 03/19/17 07:30 AST 26 U/L (15-59) 03/19/17 07:30 ALT 37 U/L (7-56) 03/19/17 07:30 Alkaline Phosphatase 126 U/L (38-133) 03/19/17 07:30 Lactate Dehydrogenase 224 U/L (333-699) L 03/16/17 23:45 Total Creatine Kinase 77 U/L (35-230) 03/16/17 23:45 Troponin I 0.05 ng/mL D 03/16/17 23:45 NT-Pro-B Natriuret Pep 8210 pg/mL (0-450) H 03/16/17 12:30 Total Protein 6.8 g/dL (5.8-8.3) 03/19/17 07:30 Albumin 3.9 g/dL (3.0-4.8) 03/19/17 07:30 Globulin 3.0 gm/dL 03/19/17 07:30 Albumin/Globulin Ratio 1.3 (1.1-1.8) 03/19/17 07:30 Triglycerides 159 mg/dL (35-160) 03/16/17 14:58 Cholesterol 133 mg/dL (130-200) 03/16/17 14:58 LDL Cholesterol Direct 65 mg/dL (0-129) 03/16/17 14:58 HDL Cholesterol 33 mg/dL (29-60) 03/16/17 14:58 Vitamin B12 394 pg/mL (239-931) 03/18/17 10:55 Folate 13.2 ng/mL 03/18/17 10:55 TSH 3rd Generation 2.94 mIU/mL (0.46-4.68) 03/16/17 14:58 - Hospital Course Hospital Course: Patient is an 86yo male with PMHx of CAD s/p stent placement, AICD, HTN, HLD, macular degeneration and basal cell skin cancer presented to ED c/o SOB for the past several days. Pt reported not being able to walk for more than half of a block before stopping to catch his breath but denied chest pain or palpitations. At the time of admission, CXR showed no active disease; ECG revealed ventricular paced rhythm with underlying afib. Labs were notable for d- dimer of 1.14, BUN 26, Cr 1.0, NT-proBNP of 8210 and trop of 0.03. V/Q scan was ordered, which showed low probability of pulmonary embolism. In b/l LE ultrasound, there was no evidence of DVT. Further work-up with LE arterial doppler showed relatively normal RADHA and PVR examination at rest. Cardiology was consulted and as per Dr. Arguello recommendation, patient underwent catherization procedure. Cardiac catherization findings could not explain the patients exertional dyspnea; no critical lesions were found and thus no stents were placed. Troponin was negative x 3. In this setting, CT chest was ordered for further investigation of dyspnea on exertion, and it was unremarkable. Ultimately, echocardiagram was performed and it showed mild to moderate pulmonary hypertension with LVEF of 51.6%. Pulmonology was consulted and attributed the patient's symptoms to likely pulmonary hypertension. Workup/ results and further treatment was discussed with the patient and his extensively and recommended to follow up with pulmonary as an outpatient for treatment of pulmonary hypertension. Patient was agreeable to the plan and was discharged with instructions to follow up with pulmonary (Dr. Montemayor), cardiology (Dr. Goss) and his primary doctor (Dr. Acevedo) within 1-2 weeks of discharge. Discharge Exam - Head Exam Head Exam: ATRAUMATIC, NORMAL INSPECTION, NORMOCEPHALIC - Eye Exam Eye Exam: EOMI, PERRL. absent: Scleral icterus - ENT Exam ENT Exam: Mucous Membranes Moist - Neck Exam Neck exam: Normal Inspection - Respiratory Exam Respiratory Exam: Clear to PA & Lateral, NORMAL BREATHING PATTERN. absent: Accessory Muscle Use, Rales, Rhonchi, Wheezes, Respiratory Distress - Cardiovascular Exam Cardiovascular Exam: RRR, +S1, +S2. absent: Clicks, JVD, Rubs - GI/Abdominal Exam GI & Abdominal Exam: Soft, Unremarkable. absent: Diminished Bowel Sounds, Distended, Firm, Rebound, Rigid, Tenderness - Extremities Exam Extremities exam: normal inspection - Neurological Exam Neurological exam: Alert, CN II-XII Intact, Oriented x3 - Psychiatric Exam Psychiatric exam: Normal Affect, Normal Mood - Skin Skin Exam: Dry, Intact, Normal Color, Warm Discharge Plan - Follow Up Plan Condition: FAIR Disposition: HOME/ ROUTINE Instructions: Heart Failure (DC), Pacemaker (DC), Heart Healthy Diet (DC), Pulmonary Arterial Hypertension (DC), Fall Prevention (DC) Additional Instructions: 1. Follow up with your primary doctor, Dr. Acevedo within 1-2 weeks. 2. Follow up with your chest painting and sealing supervisor, Dr. Montemayor within 1-2 weeks. Call office for appointment [phone]. 3. Follow up with your fly worker, Dr. Goss within 1-2 weeks. 4. Return to the emergency room should you feel unwell or your symptoms worsen. Referrals: Caleb Acevedo MD [Primary Care Provider] - Nirmal Montemayor MD [Staff Provider] - <Caleb Acevedo - Last Filed: 04/24/17 08:18> Provider - Provider Date of Admission: 03/16/17 13:35 Attending physician: Caleb Acevedo MD Primary care physician: Caleb Acevedo MD Hospital Course - Lab Results Lab Results: Most Recent Lab Values WBC 6.0 10^3/ul (4.5-11.0) 03/19/17 07:30 RBC 4.47 10^6/uL (3.5-6.1) 03/19/17 07:30 Hgb 12.5 gm/dL (14.0-18.0) L 03/19/17 07:30 Hct 38.6 % (42.0-52.0) L 03/19/17 07:30 MCV 86.4 fL (80.0-105.0) 03/19/17 07:30 MCH 28.0 pg (25.0-35.0) 03/19/17 07:30 MCHC 32.4 g/dl (31.0-37.0) 03/19/17 07:30 RDW 13.7 % (11.5-14.5) 03/19/17 07:30 Plt Count 160 10^3/uL (120.0-450.0) 03/19/17 07:30 MPV 9.8 fl (7.0-11.0) 03/19/17 07:30 Gran % 62.0 % (50.0-68.0) 03/19/17 07:30 Lymph % (Auto) 19.5 % (22.0-35.0) L 03/19/17 07:30 Loíza % (Auto) 13.1 % (1.0-6.0) H 03/19/17 07:30 Eos % (Auto) 4.7 % (1.5-5.0) 03/19/17 07:30 Baso % (Auto) 0.7 % (0.0-3.0) 03/19/17 07:30 Gran # 3.73 (1.4-6.5) 03/19/17 07:30 Lymph # 1.2 (1.2-3.4) 03/19/17 07:30 Loíza # 0.8 (0.1-0.6) H 03/19/17 07:30 Eos # 0.3 (0.0-0.7) 03/19/17 07:30 Baso # 0.04 K/mm3 (0.0-2.0) 03/19/17 07:30 PT 10.8 Seconds (9.9-11.8) 03/16/17 12:30 INR 1.00 (0.93-1.08) 03/16/17 12:30 APTT 24.9 Seconds (23.7-30.8) 03/16/17 12:30 D-Dimer, Quantitative 1.14 mg/L FEU (0-0.50) H 03/16/17 12:30 Sodium 142 mmol/L (132-148) 03/19/17 07:30 Potassium 4.0 mmol/L (3.6-5.0) 03/19/17 07:30 Chloride 106 mmol/L (98-107) 03/19/17 07:30 Carbon Dioxide 25 mmol/L (21-33) 03/19/17 07:30 Anion Gap 15 (10-20) 03/19/17 07:30 BUN 22 mg/dL (7-21) H 03/19/17 07:30 Creatinine 1.9 mg/dL (0.5-1.4) H 03/19/17 07:30 Est GFR ( Amer) 41 03/19/17 07:30 Est GFR (Non-Af Amer) 34 03/19/17 07:30 POC Glucose (mg/dL) 123 mg/dL (65-110) H 03/18/17 15:55 Random Glucose 119 mg/dL (70-110) H 03/19/17 07:30 Hemoglobin A1c 6.4 % (4.2-6.5) 03/16/17 14:58 Calcium 9.0 mg/dL (8.4-10.5) 03/19/17 07:30 Phosphorus 3.7 mg/dL (2.5-4.5) 03/16/17 14:58 Magnesium 2.4 mg/dL (1.7-2.2) H 03/16/17 14:58 Iron 35 ug/dL (45-180) L 03/18/17 10:55 TIBC 303 ug/dL (261-462) 03/18/17 10:55 % Saturation 12 % (20-55) L 03/18/17 10:55 Ferritin 36.5 ng/mL 03/18/17 10:55 Total Bilirubin 1.0 mg/dL (0.2-1.3) 03/19/17 07:30 AST 26 U/L (15-59) 03/19/17 07:30 ALT 37 U/L (7-56) 03/19/17 07:30 Alkaline Phosphatase 126 U/L (38-133) 03/19/17 07:30 Lactate Dehydrogenase 224 U/L (333-699) L 03/16/17 23:45 Total Creatine Kinase 77 U/L (35-230) 03/16/17 23:45 Troponin I 0.05 ng/mL D 03/16/17 23:45 NT-Pro-B Natriuret Pep 8210 pg/mL (0-450) H 03/16/17 12:30 Total Protein 6.8 g/dL (5.8-8.3) 03/19/17 07:30 Albumin 3.9 g/dL (3.0-4.8) 03/19/17 07:30 Globulin 3.0 gm/dL 03/19/17 07:30 Albumin/Globulin Ratio 1.3 (1.1-1.8) 03/19/17 07:30 Triglycerides 159 mg/dL (35-160) 03/16/17 14:58 Cholesterol 133 mg/dL (130-200) 03/16/17 14:58 LDL Cholesterol Direct 65 mg/dL (0-129) 03/16/17 14:58 HDL Cholesterol 33 mg/dL (29-60) 03/16/17 14:58 Vitamin B12 394 pg/mL (239-931) 03/18/17 10:55 Folate 13.2 ng/mL 03/18/17 10:55 TSH 3rd Generation 2.94 mIU/mL (0.46-4.68) 03/16/17 14:58 Attending/Attestation - Attestation I have personally seen and examined this patient.: Yes I have fully participated in the care of the patient.: Yes I have reviewed all pertinent clinical information, including history, physical exam and plan: Yes Notes (Text): 04/24/17 08:18 Medical record note made by the resident after discussion with my direction and input after the patient was personally seen and examined by me. I have reviewed the chart and agree that the record reflects my personal performance of history, physical, data review and course for the patient that I have planned.
== END 2017-03-19 13:45 | disposition home or self-care (01) | DRG 287 ==
LOC: ED 11:58 → ERH 13:35 → 2RSO 18:08 → 5RSO 03-18 20:26
PROVIDERS: ADMIT Internal Medicine; ATTEND Internal Medicine
PROC: 4A023N7 Measurement of Cardiac Sampling and Pressure, Left Heart, Percutaneous Approach (ICD-10-PCS; principal; 2017-03-17)
PROC: B2151ZZ Fluoroscopy of Left Heart using Low Osmolar Contrast (ICD-10-PCS; 2017-03-17)
PROC: B2111ZZ Fluoroscopy of Multiple Coronary Arteries using Low Osmolar Contrast (ICD-10-PCS; 2017-03-17)
DX: I27.2 Other secondary pulmonary hypertension (principal); I11.0 Hypertensive heart disease with heart failure; I50.9 Heart failure, unspecified; I25.119 Atherosclerotic heart disease of native coronary artery with unspecified angina pectoris; D64.9 Anemia, unspecified; E78.5 Hyperlipidemia, unspecified; J44.9 Chronic obstructive pulmonary disease, unspecified; C44.91 Basal cell carcinoma of skin, unspecified; I35.1 Nonrheumatic aortic (valve) insufficiency; N40.0 Benign prostatic hyperplasia without lower urinary tract symptoms; E78.00 Pure hypercholesterolemia, unspecified; H35.30 Unspecified macular degeneration; Z95.5 Presence of coronary angioplasty implant and graft; Z95.0 Presence of cardiac pacemaker; Z79.82 Long term (current) use of aspirin; Z87.891 Personal history of nicotine dependence; Z83.3 Family history of diabetes mellitus; Z80.0 Family history of malignant neoplasm of digestive organs

== ENCOUNTER 2017-04-22 12:03 | Day surgery (SDC) | payer MEDICARE ==
[2017-04-22 12:42] LABS: ADD MANUAL DIFF? NO
[2017-04-22 12:50] LABS: BASO # 0.07 K/mm3 (0.0-2.0); BASO % 1.1 % (0.0-3.0); EOS # 0.2 (0.0-0.7); EOS % 3.8 % (1.5-5.0); GRAN # 3.98 (1.4-6.5); GRAN % 65.3 % (50.0-68.0); LYMPH # 1.2 (1.2-3.4); LYMPH % 19.8 % (22.0-35.0); MEAN CELL VOLUME 85.5 fL (80.0-105.0); MEAN CORPUSCULAR HEMOGLOBIN 28.1 pg (25.0-35.0); MEAN CORPUSCULAR HGB CONC 32.8 g/dl (31.0-37.0); MEAN PLATELET VOLUME 9.8 fl (7.0-11.0); MONO # 0.6 (0.1-0.6); PLATELET COUNT 176 10^3/uL (120.0-450.0); RED CELL DISTRIBUTION WIDTH 13.4 % (11.5-14.5); WHITE BLOOD COUNT 6.1 10^3/ul (4.5-11.0)
[2017-04-22 12:56] LABS: CALCIUM 9.3 mg/dL (8.4-10.5); POTASSIUM 4.6 mmol/L (3.6-5.0)
[2017-04-22 13:14] LABS: INR 1.02 (0.93-1.08); PARTIAL THROMBOPLASTIN TIME 26.4 Seconds (23.7-30.8)
[2017-04-22] MEDS ORDERED: Lidocaine 2% Inj (20ml) ONE (15:12)
[2017-04-22] MEDS ORDERED: Midazolam 2 MG/2 ML VIAL ONE (15:21)
[2017-04-22] MEDS ORDERED: Liquid Adhesive TOP ONE (16:24)
[2017-04-22 17:24] VITALS: TEMP 98
[2017-04-22 18:04] VITALS: PULSE 90; RESP 20; O2SAT 98
[2017-04-22 19:00] VITALS: BP 156/82
--- NOTE | 2017-04-23 08:08 | OP ---
PROCEDURE DATE: 04/22/2017 PROCEDURE: Permanent pacemaker generator change. This is a dual chamber permanent pacemaker. PREPROCEDURE DIAGNOSES: Permanent pacemaker at [facility] recommended replacement; history of syncope. INDICATIONS: The patient is a very pleasant 87-year-old male with past medical history sig nificant for coronary artery disease status post stent placement, permanent pacemaker with history of recurrent syncope, hypertension, hyperlipidemia, basal cell skin cancer, who presents to [facility] for elective permanent pacemaker generator change. The patient's device has reached [facility] and is normally followed by the pacemaker clinic here at [facility]. Of note, patient alvarado d a recent admission for worsening shortness of breath, diagnosed with pulmonary hypertension, seen b y the pulmonary team. Ejection fraction at the time of reevaluation was 51%. Informed consent was received for the procedure, which is a permanent pacemaker generator change. DESCRIPTION OF PROCEDURE: The patient was brought into the room in stable condition, placed on appro priate monitors. The left pectoral area was draped and prepped in a sterile fashion, 2% lidocaine so lution was injected into the surgical site. Prior to proceeding, patient did undergo fluoroscopy whi ch showed both atrial and ventricular leads in place with lack of slack in both leads, but position a ppears to be preserved. Once the incision was made, the pocket was opened. The device was exteriorized. The detailed capsul ectomy was also performed. Once the existing device was exteriorized, it was removed from the atrial and ventricular wires. Serial number on this device is [id number]. The device was then freed from the existing leads without difficulty. The leads were then tested through the program system analyze r. The right atrium which is a 5076, 45 cm lead, serial number [id number] was tested with threshold of 0.5 volts at 0.4 milliseconds at a current of 1.0 milliamps, impedance of 422, P waves measured 2. 0. The right ventricular lead is a 5076, 52 cm lead, serial number [id number]. Parameters on this l ead were also within normal limits with threshold of 0.7 volts at 0.5 milliseconds at a current of 1. 4 milliamps, impedance of 471. The R-wave measured 2.7. Both leads again were satisfactory. The le ads were then connected to the new device which is a [employer] MRI safe Advisa device, serial number [id number]. The pocket was then inspected for bleeding. Cauterization did occur. Device was then c oiled and placed in the pocket, again without difficulty. The superficial and skin layers were then brought together using 2-0 Vicryl. A retention suture was placed prior to final closure. The final layer of the wound was closed with Mastisol and Steri-Strips. The patient was taken out of the room in hemodynamically stable condition. He received a total of 125 mg of Versed and fentanyl for sedati on and comfort. Plan is for the patient to go home in a period of 3-4 hours. Thank you for allowing me to participate in the care of your patient. Please do not hesitate to call for any questions in regards to his care. Sage Rogers MD cc:Samuel Goss MD 481 TT: 04/22/2017 18:41:23 sn
== END 2017-04-22 19:30 | disposition home or self-care (01) ==
LOC: CATH 12:03
PROVIDERS: ATTEND Internal Medicine Cardiovascular Disease
DX: Z45.010 Encounter for checking and testing of cardiac pacemaker pulse generator [battery] (principal); R00.1 Bradycardia, unspecified; I25.10 Atherosclerotic heart disease of native coronary artery without angina pectoris; I10 Essential (primary) hypertension; E78.5 Hyperlipidemia, unspecified; I27.2 Other secondary pulmonary hypertension; Z95.5 Presence of coronary angioplasty implant and graft; Z85.828 Personal history of other malignant neoplasm of skin
CPT/HCPCS: 33228; 36415; 80048; 80061; 85025; 85610; 85730; 86850; 86900; 99152; 99153; C1785; J0690; J2250; J3010; J7040